=== PATIENT | male | born 1940 | race Caucasian/White ===

== ENCOUNTER 2016-06-02 08:38 | Emergency (ER) | payer MEDICARE, OTHER ==
[2016-06-02] MEDS ORDERED: DEXAMETHASONE 10 MG/ML VIAL PO STA (08:56)
[2016-06-02] MEDS ORDERED: LORATADINE 10 MG TABLET PO STA (08:56)
[2016-06-02] MEDS ORDERED: LORATADINE 10 MG TABLET PO ONE (09:09)
[2016-06-02] MEDS ORDERED: CHERRY SYRUP 10 ML UDC PO ONE (09:09)
[2016-06-02] MEDS ORDERED: DEXAMETHASONE 10 MG/ML VIAL ONE (09:10)
== END 2016-06-02 11:11 | disposition home or self-care (01) ==
DX: J40 Bronchitis, not specified as acute or chronic (principal); B09 Unspecified viral infection characterized by skin and mucous membrane lesions; I10 Essential (primary) hypertension; E11.9 Type 2 diabetes mellitus without complications; Z79.4 Long term (current) use of insulin; Z95.0 Presence of cardiac pacemaker; Z79.82 Long term (current) use of aspirin; Z87.891 Personal history of nicotine dependence
CPT/HCPCS: 71020; 99283; 99284; A9270

== ENCOUNTER 2016-07-26 08:21 | Outpatient (CLI) | payer MEDICARE, OTHER | END 2016-07-26 08:22 | disposition home or self-care (01) | DX: Z13.6 Encounter for screening for cardiovascular disorders (principal); Z87.891 Personal history of nicotine dependence ==

== ENCOUNTER 2017-06-15 09:16 | Emergency (ER) | payer MEDICARE, OTHER ==
[2017-06-15 09:23] VITALS: BP 168/107
--- NOTE | 2017-06-15 09:25 | ED Physician Documentation ---
PD HPI BACK PAIN - Stated complaint Stated Complaint: ELEVATED BP - Chief complaint Chief Complaint: Back Pain - History obtained from History obtained from: Patient - History of Present Illness Timing - onset: Today (he has had lumbar pain radiating to left posterior leg and knee for a few days without noted injury. Seen by PMD yesterday and instructed to use Aleve 2 tabs twice daily. Has some Tylenol#3 if needed. He took his BP this morning and it was elevated above normal (usually 130s systolic and noted to be 175-180 systolic this morning over a few separate readings. He was concerned about the BP being elevated. Did not want more meds for back.) Timing - duration: Days (BP noted to be elevated today. back hurting for few days.) Location: Lower, Left Quality: Pain Associated symptoms: No: Fever, Weakness, Numbness, Incontinent of urine Improves with: Rest Worsened by: Movement, Lifting Contributing factors: No: Lifting, Twisting Recently seen: Clinic (seen by PMD yesterday for the back pain.) Review of Systems Constitutional: denies: Fever, Chills Eyes: denies: Decreased vision Nose: denies: Rhinorrhea / runny nose, Congestion Throat: denies: Sore throat Cardiac: denies: Chest pain / pressure, Palpitations Respiratory: denies: Dyspnea, Cough GI: denies: Abdominal Pain, Bloody / black stool : denies: Dysuria, Frequency, Hematuria Skin: denies: Rash, Lesions Neurologic: denies: Generalized weakness, Focal weakness, Numbness, Headache Endocrine: denies: Weight loss Immunocompromised: denies: Immunocompromised PD PAST MEDICAL HISTORY - Past Medical History Cardiovascular: Hypertension, High cholesterol Endocrine/Autoimmune: Type 2 diabetes - Past Surgical History Past Surgical History: Yes Ortho: Knee replacement - Present Medications Home Medications: Ambulatory Orders Medication Instructions Recorded Confirmed Acetaminophen/Cod 300/30 [Tylenol 1 each PO Q4-6H 08/08/13 06/15/17 #3] Ascorbic Acid [Vitamin C] 1,000 mg PO DAILY 08/08/13 06/15/17 Aspirin [Aspir 81] 81 mg PO HS 08/08/13 06/15/17 Cholecalciferol [Vitamin D3] 2,000 unit PO DAILY 08/08/13 06/15/17 Ibuprofen [Motrin] 600 mg PO Q6H PRN 08/08/13 06/15/17 Insulin Glargine,Hum.rec.anlog 85 unit SQ HS 08/08/13 06/15/17 [Lantus] Metformin HCl 1,000 mg PO BID 08/08/13 06/15/17 Multivitamin [Multi-Vitamin Daily] 1 each PO DAILY 08/08/13 06/15/17 [place]-3 Fatty Acids [[place]-3] 0 mg PO BID 08/08/13 06/15/17 Telmisartan [Micardis] 80 mg PO HS 08/08/13 06/15/17 hydroCHLOROthiazide 12.5 mg PO DAILY 03/24/15 06/15/17 [Hydrochlorothiazide] Benzonatate [Tessalon] 100 mg PO TID PRN #20 capsule 06/02/16 06/15/17 - Allergies Allergies/Adverse Reactions: Allergies Allergy/AdvReac Type Severity Reaction Status Date / Time No Known Drug Allergies Allergy Verified 08/08/13 08:24 - Social History Does the pt smoke?: No Smoking Status: Former smoker Does the pt drink ETOH?: Yes Does the pt have substance abuse?: No - POLST Patient has POLST: No PD ED PE NORMAL - Vitals Vital signs reviewed: Yes - General General: Alert and oriented X 3, No acute distress, Well developed/nourished - Cardiac Cardiac: RRR, No murmur - Respiratory Respiratory: Clear bilaterally - Abdomen Abdomen: Soft, Non tender - Back Back: No spinal TTP (tender left lateral lumbar tender in muscles. No rash nor sores. ) - Derm Derm: Normal color, Warm and dry - Neuro Neuro: Alert and oriented X 3, No motor deficit, No sensory deficit, Normal speech Eye Opening: Spontaneous Motor: Obeys Commands Verbal: Oriented GCS Score: 15 Results - Vitals Vitals: Vital Signs - 24 hr 06/15/17 09:21 Temperature 36.4 C L Heart Rate 80 Respiratory 18 Rate Blood Pressure 168/107 H O2 Saturation 96 Oxygen O2 Source Room air Departure - Departure Disposition: Home, Self Care Clinical Impression: Elevated blood pressure reading Low back pain Qualifiers: Chronicity: acute Back pain laterality: left Sciatica presence: with sciatica Sciatica laterality: sciatica of left side Qualified Code(s): M54.42 - Lumbago with sciatica, left side Condition: Stable Record reviewed to determine appropriate education?: Yes Instructions: ED Sciatica Follow-Up: Diomedes Santana MD [Primary Care Provider] - Comments: Your blood pressure being elevated today is reasonable given the pain and such. Check to see if it stays consistently elevated over time and if so your medication may need to be adjusted. However being elevated just in response to situation and symptoms does not require extra treatment. Regarding the back pain, continue the Aleve and Tylenol with codeine. Add physical treatment such as massage or chiropractic. Follow-up with your primary care if not improved over the next week. Discharge Date/Time: 06/15/17 09:59
== END 2017-06-15 09:59 | disposition home or self-care (01) ==
LOC: ED 09:16
DX: I10 Essential (primary) hypertension (principal); E78.00 Pure hypercholesterolemia, unspecified; E11.9 Type 2 diabetes mellitus without complications; Z79.4 Long term (current) use of insulin; Z79.82 Long term (current) use of aspirin; Z87.891 Personal history of nicotine dependence
CPT/HCPCS: 99283

== ENCOUNTER 2022-11-21 23:05 | Outpatient (CLI) | payer MEDICARE, OTHER | END 2022-11-21 23:59 | disposition EMS.NT | LOC: EMS 23:05 | DX: E10.649 Type 1 diabetes mellitus with hypoglycemia without coma (principal) ==

== ENCOUNTER 2023-06-03 09:41 | Outpatient (CLI) | payer MEDICARE, OTHER ==
[2023-06-03 10:05] LABS: BASOPHILS % (AUTO) 0.5 %; EOSINOPHILS # (AUTO) 0.2 10^3/uL (0.0-0.7); EOSINOPHILS % (AUTO) 3.1 %; HCT - HEMATOCRIT 41.7 % (42.0-52.0); HGB - HEMOGLOBIN 13.7 g/dL (14.0-18.0); LYMPHOCYTES # (AUTO) 1.4 10^3/uL (1.5-3.5); LYMPHOCYTES % (AUTO) 18.9 %; MEAN CORPUSCULAR HGB CONC 32.9 g/dL (32.0-36.0); MEAN CORPUSCULAR VOLUME 88.3 fL (80.0-94.0); MEAN PLATELET VOLUME 8.8 fL (7.4-11.4); MONOCYTES # (AUTO) 0.7 10^3/uL (0.0-1.0); MONOCYTES % (AUTO) 9.3 %; NEUTROPHILS # (AUTO) 4.9 10^3/uL (1.5-6.6); NEUTROPHILS % (AUTO) 67.2 %; PLT - PLATELET COUNT 171 10^3/uL (130-450); RED BLOOD COUNT 4.72 10^6/uL (4.70-6.10); WHITE BLOOD COUNT 7.4 x10^3/uL (4.8-10.8)
[2023-06-03 10:14] LABS: INR 0.9 (0.8-1.2); PT - PROTHROMBIN TIME 10.5 secs (9.9-12.6)
[2023-06-03 10:22] LABS: CALCIUM 9.6 mg/dL (8.5-10.3); CREATININE 1.4 mg/dL (0.6-1.3); POTASSIUM 4.3 mmol/L (3.5-4.5)
== END 2023-06-03 09:42 | disposition home or self-care (01) ==
LOC: LAB 09:41
PROVIDERS: ATTEND Internal Medicine Cardiovascular Disease
DX: Z45.09 Encounter for adjustment and management of other cardiac device (principal)
CPT/HCPCS: 36415; 80048; 85025; 85610